=== PATIENT | male | born 1970 | race Two or more races ===

== ENCOUNTER 2017-06-23 11:33 | Emergency (ER) | payer MEDICAID ==
[~2017-06-23] VITALS: Ht 175.3 cm; Wt 89.0 kg
[~2017-06-23 11:33] MED LIST: NO HOME MEDS
[2017-06-23 11:37] VITALS: BP 135/94
[2017-06-23] MEDS ORDERED: cephalexin 500mg capsule PO ONE (11:45)
[2017-06-23] MEDS ORDERED: CEPH500C5 PO (11:46)
== END 2017-06-23 12:09 | disposition home or self-care (01) ==
LOC: ER 11:34
DX: L03.115 Cellulitis of right lower limb (principal); F15.10 Other stimulant abuse, uncomplicated; I10 Essential (primary) hypertension; Z88.8 Allergy status to other drugs, medicaments and biological substances; Z56.0 Unemployment, unspecified; Z79.899 Other long term (current) drug therapy; Z98.890 Other specified postprocedural states
CPT/HCPCS: 99283

== ENCOUNTER 2020-05-21 11:13 | Emergency (ER) | payer MEDICAID ==
[~2020-05-21] VITALS: Ht 175.3 cm; Wt 100.7 kg
[2020-05-21] MEDS ORDERED: normal saline 1000ML IV soln IVB ONE (12:00)
[2020-05-21] MEDS ORDERED: cloNIDine 0.1 mg tablet PO SCH (13:00)
[2020-05-21 13:04] VITALS: BP 165/102
== END 2020-05-21 13:49 | disposition home or self-care (01) ==
LOC: ER 11:13
DX: F15.10 Other stimulant abuse, uncomplicated (principal); F10.20 Alcohol dependence, uncomplicated; R00.0 Tachycardia, unspecified; I10 Essential (primary) hypertension; Z72.89 Other problems related to lifestyle; Z98.890 Other specified postprocedural states; Z56.0 Unemployment, unspecified; Y90.0 Blood alcohol level of less than 20 mg/100 ml
CPT/HCPCS: 93005; 96360; 96361; 99283; J7030

== ENCOUNTER 2021-01-19 18:00 | Emergency (ER) | payer MEDICAID ==
[~2021-01-19] VITALS: Ht 175.3 cm; Wt 105.0 kg
[2021-01-19 18:30] VITALS: BP 152/102
== END 2021-01-19 21:05 | disposition left against medical advice (07) ==
LOC: ER 18:01
DX: G89.29 Other chronic pain (principal); M25.562 Pain in left knee; Z53.21 Procedure and treatment not carried out due to patient leaving prior to being seen by health care provider

== ENCOUNTER 2021-07-02 20:43 | Inpatient (IN) | payer MEDICAID ==
[~2021-07-02] VITALS: Ht 175.3 cm; Wt 106.8 kg
[2021-07-02] MEDS ORDERED: temazepam 15mg capsule PO PRN (21:00)
[2021-07-02] MEDS ORDERED: normal saline 1000ml 1,000 ML IV ONE (21:45)
[2021-07-02 22:10] LABS: APTT 30 SECONDS (22-32)
[2021-07-02 22:11] LABS: ALANINE AMINOTRANSFERASE 35 U/L (12-78); ALBUMIN 3.1 G/DL (3.4-5.0); ALBUMIN/GLOBULIN RATIO 0.8 (1.1-1.5); ALKALINE PHOSPHATASE 66 IU/L (46-116); ANION GAP 8 (8-16); ASPARTATE AMINO TRANSFERASE 22 U/L (10-37); BILIRUBIN,TOTAL 1.2 MG/DL (0.1-1.0); BLOOD UREA NITROGEN 12 MG/DL (7-18); BUN/CREATININE RATIO 11.5 (5.4-32.0); CALCIUM 8.8 MG/DL (8.5-10.1); CHLORIDE 99 MMOL/L (99-107); CREATININE 1.04 MG/DL (0.60-1.10); GLUCOSE 144 MG/DL (70-104); POTASSIUM 3.5 MMOL/L (3.5-5.1); SODIUM 133 MMOL/L (135-145); TOTAL CARBON DIOXIDE 25.6 MMOL/L (24-32); TOTAL PROTEIN 7.2 G/DL (6.4-8.2); eGFR 75 ML/MIN
[2021-07-02 22:25] LABS: BASOPHILS % (AUTO) 0.1 % (0-1); EOSINOPHILS % (AUTO) 0 % (0-6); HEMATOCRIT 46.3 % (42.0-52.0); HEMOGLOBIN 15.8 g/dl (14.0-17.9); LYMPHOCYTES # (AUTO) 0.7 X10'3 (1.1-4.8); LYMPHOCYTES % (AUTO) 3.6 % (21-51); MEAN CORPUSCULAR HEMOGLOBIN 30.4 PG (27.0-31.0); MEAN CORPUSCULAR HGB CONC 34.2 g/dL (33.0-36.5); MEAN CORPUSCULAR VOLUME 88.8 FL (78-98); MEAN PLATELET VOLUME 7.9 FL (7.4-10.4); MONOCYTES # (AUTO) 0.7 X10'3 (0-0.9); MONOCYTES % (AUTO) 3.2 % (2-12); NEUTROPHILS # (AUTO) 19.1 X10'3 (1.8-7.7); NEUTROPHILS % (AUTO) 93.1 % (42-75); PLATELET COUNT 221 X10'3 (140-440); RED BLOOD COUNT 5.21 X10'6 (4.70-6.10); RED CELL DISTRIBUTION WIDTH 13.5 % (11.5-14.5); WHITE BLOOD COUNT 20.6 X10'3 (4.5-11.0)
[2021-07-02] MEDS ORDERED: piperacillin/tazo 4.5gm/100ml 100 ML IV STA (22:32)
[2021-07-02] MEDS ORDERED: vancomycin/NS 1 GM ADD-VANTAGE 250 ML IV ONE (22:35)
--- NOTE | 2021-07-02 22:52 | NUR ---
ULTRASOUND IN ROOM
[2021-07-02] MEDS ORDERED: mag hydrox/Alum hydrox/simeth 30ml oral suspension PO PRN (23:25)
[2021-07-02] MEDS ORDERED: HYDROcodone/acetaminophen 5mg/325mg tablet PO PRN (23:25)
[2021-07-02] MEDS ORDERED: diphenhydrAMINE 25mg capsule PO PRN (23:25)
[2021-07-02] MEDS ORDERED: diphenhydrAMINE 50 mg/ml inj IV PRN (23:25)
[2021-07-02] MEDS ORDERED: ondansetron/PF 4mg/2ml inj IV PRN (23:25)
[2021-07-02] MEDS ORDERED: acetaminophen 325mg tablet PO PRN ×2 (23:25)
[2021-07-02] MEDS ORDERED: acetaminophen 650mg rectal suppository RC PRN (23:25)
[2021-07-02] MEDS ORDERED: magnesium hydroxide 30ml (MOM) UD suspension PO PRN (23:25)
[2021-07-02] MEDS ORDERED: morphine 2 MG/ML inj. syringe IV PRN ×2 (23:25)
[2021-07-02] MEDS ORDERED: bisacodyl 10mg suppository rectal RC PRN (23:25)
[2021-07-02] MEDS ORDERED: ondansetron 4mg rapidly disintigrating tab PO PRN (23:25)
[2021-07-02] MEDS ORDERED: HYDROcodone/acetaminophen 10/325mg tab PO PRN (23:25)
[2021-07-02] MEDS: normal saline 1000ml 1,000 ML IV SCH (23:25)
[2021-07-03] MEDS ORDERED: vancomycin/NS 1 GM ADD-VANTAGE 250 ML IV SCH
[2021-07-03 00:17] LABS: HEMOGLOBIN A1C 5.8 % (4.5-6.2)
[2021-07-03 00:25] LABS: CREATINE KINASE 59 U/L (39-308); MAGNESIUM 1.5 MG/DL (1.5-2.4); PHOSPHORUS 2.5 MG/DL (2.3-4.5)
[2021-07-03] MEDS: piperacillin/tazo 4.5gm/100ml 100 ML IV SCH ×2 (07:17)
[2021-07-03] MEDS ORDERED: pantoprazole 40mg Tablet.DR PO SCH (07:30)
[2021-07-03 07:44] LABS: CLARITY,URINE SLIGHTLY CLOUDY (Clear); COLOR,URINE YELLOW (Yellow); GLUCOSE, URINE NEGATIVE (Neg); KETONES,URINE NEGATIVE (Neg); LEUKOCYTE ESTERASE ,URINE NEGATIVE (Neg); NITRITES, URINE NEGATIVE (Neg); OCCULT BLOOD,URINE MODERATE (Neg); PROTEIN,URINE NEGATIVE (Neg)
[2021-07-03 07:49] LABS: UA COLLECTION TYPE VOIDED
[2021-07-03 07:52] LABS: BACTERIA,URINE FEW /HPF (Neg); MUCUS STRANDS FEW /LPF (Neg); SQUAMOUS EPITHELIAL CELL,UR FEW /LPF (FEW)
[2021-07-03] MEDS ORDERED: heparin, porcine 5000 units/ml vial SQ SCH (08:00)
[2021-07-03] MEDS ORDERED: docusate sod 100mg capsule PO SCH (08:00)
--- NOTE | 2021-07-03 08:22 | NUR ---
Pt up to use the restroom. Steady gait.
[2021-07-03 08:34] LABS: URINE CANNABINOID SCREEN NEGATIVE (Neg); URINE COCAINE SCREEN NEGATIVE (Neg); URINE METHADONE SCREEN NEGATIVE (Neg); URINE PHENCYCLIDINE SCREEN NEGATIVE (Neg)
[2021-07-03 08:38] LABS: URINE AMPHETAMINE SCREEN POSITIVE (Neg); URINE BARBITUATE SCREEN NEGATIVE (Neg); URINE BENZODIAZEPINES SCREEN NEGATIVE (Neg); URINE OPIATE SCREEN NEGATIVE (Neg)
[2021-07-03] MEDS: normal saline 1000ml 1,000 ML IV SCH (09:25)
[2021-07-03 10:12] LABS: BASOPHILS % (AUTO) 0.3 % (0-1); EOSINOPHILS % (AUTO) 0.3 % (0-6); HEMATOCRIT 43.2 % (42.0-52.0); HEMOGLOBIN 14.8 g/dl (14.0-17.9); LYMPHOCYTES # (AUTO) 0.9 X10'3 (1.1-4.8); LYMPHOCYTES % (AUTO) 6.4 % (21-51); MEAN CORPUSCULAR HEMOGLOBIN 30.9 PG (27.0-31.0); MEAN CORPUSCULAR HGB CONC 34.2 g/dL (33.0-36.5); MEAN CORPUSCULAR VOLUME 90.3 FL (78-98); MEAN PLATELET VOLUME 7.6 FL (7.4-10.4); MONOCYTES # (AUTO) 0.8 X10'3 (0-0.9); MONOCYTES % (AUTO) 5.2 % (2-12); NEUTROPHILS # (AUTO) 12.7 X10'3 (1.8-7.7); NEUTROPHILS % (AUTO) 87.8 % (42-75); PLATELET COUNT 197 X10'3 (140-440); RED BLOOD COUNT 4.79 X10'6 (4.70-6.10); RED CELL DISTRIBUTION WIDTH 13.7 % (11.5-14.5); WHITE BLOOD COUNT 14.4 X10'3 (4.5-11.0)
[2021-07-03 10:20] LABS: ALANINE AMINOTRANSFERASE 31 U/L (12-78); ALBUMIN 2.7 G/DL (3.4-5.0); ALBUMIN/GLOBULIN RATIO 0.7 (1.1-1.5); ALKALINE PHOSPHATASE 58 IU/L (46-116); ANION GAP 6 (8-16); ASPARTATE AMINO TRANSFERASE 20 U/L (10-37); BILIRUBIN,TOTAL 1.3 MG/DL (0.1-1.0); BLOOD UREA NITROGEN 13 MG/DL (7-18); BUN/CREATININE RATIO 11.7 (5.4-32.0); CALCIUM 8.1 MG/DL (8.5-10.1); CHLORIDE 102 MMOL/L (99-107); CHOLESTEROL 134 MG/DL (0-200); CREATININE 1.11 MG/DL (0.60-1.10); GLUCOSE 160 MG/DL (70-104); HDL CHOLESTEROL 45 MG/DL (35-60); LDL CHOLESTEROL 81 MG/DL (50-100); POTASSIUM 3.4 MMOL/L (3.5-5.1); SODIUM 134 MMOL/L (135-145); TOTAL CARBON DIOXIDE 26.3 MMOL/L (24-32); TOTAL PROTEIN 6.5 G/DL (6.4-8.2); TRIGLYCERIDES 62 MG/DL (20-135); eGFR 70 ML/MIN
[2021-07-03 10:30] VITALS: BP 116/75
[2021-07-03] MEDS ORDERED: AMOX-580 PO (12:08)
[2021-07-03] MEDS ORDERED: VANCOmycin 1250MG/NS 250ml Bag 250 ML IV SCH (13:00)
--- NOTE | 2021-07-03 13:02 | NUR ---
Pt given and understands d/c instructions. IV d/c'd, catheter was intact. Ambulatory with a steady gait.
[2021-07-05] MEDS ORDERED: VANCOMYCIN LEVEL IV ONE (00:30)
== END 2021-07-03 13:31 | disposition home or self-care (01) | DRG 720 ==
LOC: ER 20:45 → ED HOLD 23:29
PROVIDERS: ADMIT Family Medicine; ATTEND Family Medicine
DX: A41.9 Sepsis, unspecified organism (principal); E87.1 Hypo-osmolality and hyponatremia; E86.0 Dehydration; E87.6 Hypokalemia; I10 Essential (primary) hypertension; F15.90 Other stimulant use, unspecified, uncomplicated; L03.116 Cellulitis of left lower limb; Z56.0 Unemployment, unspecified; Z88.8 Allergy status to other drugs, medicaments and biological substances
CPT/HCPCS: 36415; 71045; 80053; 80061; 80305; 81001; 82550; 83036; 83605; 83735; 83880; 84100; 84443; 84484; 85025; 85610; 85730; 87040; 87088; 93306; 93971; 96365; 99285; G0378; J1644; J2543; J3370; J7030

== ENCOUNTER 2023-02-23 18:11 | Emergency (ER) | payer MEDICAID ==
[~2023-02-23] VITALS: Ht 175.3 cm; Wt 110.0 kg
[~2023-02-23 18:11] MED LIST changes: +AMOX-580 PO; -NO HOME MEDS
[2023-02-23 18:24] VITALS: BP 172/102; PULSE 140; RESP 20; TEMP 98.8; O2SAT 97
[2023-02-23] MEDS ORDERED: normal saline 1000ML IV soln IV ONE (18:30)
[2023-02-23 19:33] LABS: BASOPHILS % (AUTO) 0.3 % (0-1); EOSINOPHILS # (AUTO) 0.1 X10'3 (0-0.9); EOSINOPHILS % (AUTO) 0.7 % (0-6); HEMATOCRIT 50.7 % (42.0-52.0); HEMOGLOBIN 17.4 g/dl (14.0-17.9); LYMPHOCYTES # (AUTO) 0.6 X10'3 (1.1-4.8); LYMPHOCYTES % (AUTO) 4.2 % (21-51); MEAN CORPUSCULAR HEMOGLOBIN 31.4 PG (27.0-31.0); MEAN CORPUSCULAR HGB CONC 34.4 g/dL (33.0-36.5); MEAN CORPUSCULAR VOLUME 91.2 FL (78-98); MEAN PLATELET VOLUME 7.7 FL (7.4-10.4); MONOCYTES # (AUTO) 0.7 X10'3 (0-0.9); MONOCYTES % (AUTO) 4.6 % (2-12); NEUTROPHILS # (AUTO) 13.6 X10'3 (1.8-7.7); NEUTROPHILS % (AUTO) 90.2 % (42-75); PLATELET COUNT 256 X10'3 (140-440); RED BLOOD COUNT 5.56 X10'6 (4.70-6.10)
[2023-02-23 19:49] LABS: ALANINE AMINOTRANSFERASE 25 U/L (12-78); ALBUMIN 3.6 G/DL (3.4-5.0); ALBUMIN/GLOBULIN RATIO 0.8 (1.1-1.5); ALKALINE PHOSPHATASE 90 IU/L (46-116); ANION GAP 7 (8-16); ASPARTATE AMINO TRANSFERASE 19 U/L (10-37); BILIRUBIN,TOTAL 1.1 MG/DL (0.1-1.0); BLOOD UREA NITROGEN 12 MG/DL (7-18); BUN/CREATININE RATIO 10.7 (10.0-20.0); CHLORIDE 99 MMOL/L (99-107); CREATININE 1.12 MG/DL (0.60-1.10); GLUCOSE 143 MG/DL (70-104); MAGNESIUM 1.7 MG/DL (1.5-2.4); POTASSIUM 3.3 MMOL/L (3.5-5.1); SODIUM 136 MMOL/L (135-145); TOTAL CARBON DIOXIDE 29.7 MMOL/L (24-32); TOTAL PROTEIN 8.3 G/DL (6.4-8.2); eCRCL 76 ML/MIN; eGFR 69 ML/MIN
== END 2023-02-23 21:55 | disposition left against medical advice (07) ==
LOC: ER 18:12
DX: L03.115 Cellulitis of right lower limb (principal)
CPT/HCPCS: 36415; 71045; 80053; 83605; 83735; 84145; 85025; 87040; 93005; 99281; 99285

== ENCOUNTER 2023-09-06 15:33 | Emergency (ER) | payer MEDICAID ==
[~2023-09-06] VITALS: Ht 175.3 cm; Wt 107.5 kg
[2023-09-06] MEDS: TETanus/Pertussis (Acell)/Diphther VAC/PF (Tdap-Adult) 0.5ml syringe IMVAC ONE (16:13)
[2023-09-06] MEDS ORDERED: SULF1TAB49 PO (16:14)
[2023-09-06] MEDS ORDERED: CEPH-585 PO (16:14)
[2023-09-06] MEDS: LIDOcaine 1% W/epiNEPHrine 1:100,000 20ml vial IJ ONE (16:17)
[2023-09-06 16:32] VITALS: BP 144/62; PULSE 89; RESP 16; TEMP 98.9; O2SAT 98
== END 2023-09-06 16:35 | disposition home or self-care (01) ==
LOC: ER 15:33
DX: L02.211 Cutaneous abscess of abdominal wall (principal); L03.311 Cellulitis of abdominal wall; I10 Essential (primary) hypertension; F15.90 Other stimulant use, unspecified, uncomplicated; Z91.018 Allergy to other foods; Z79.2 Long term (current) use of antibiotics
CPT/HCPCS: 10060; 99283; A6449

== ENCOUNTER 2024-01-06 17:28 | Emergency (ER) | payer MEDICAID ==
[~2024-01-06] VITALS: Ht 175.3 cm; Wt 109.1 kg
[2024-01-06] MEDS ORDERED: PRED50TA PO (18:26)
[2024-01-06] MEDS ORDERED: ACYC-129 PO (18:26)
[2024-01-06] MEDS: valacyclovir 500mg tablet PO ONE (18:38)
[2024-01-06] MEDS: predniSONE 20 mg tablet PO ONE (18:39)
[2024-01-06 18:42] VITALS: BP 146/90; PULSE 92; RESP 20; TEMP 98.6; O2SAT 98
== END 2024-01-06 18:43 | disposition home or self-care (01) ==
LOC: ER 17:29
DX: G51.0 Bell's palsy (principal); I10 Essential (primary) hypertension; F15.90 Other stimulant use, unspecified, uncomplicated; Z56.0 Unemployment, unspecified; Z98.890 Other specified postprocedural states; Z72.89 Other problems related to lifestyle
CPT/HCPCS: 70450; 93005; 99284; J7512